=== PATIENT | female | born 1980 | race Caucasian/White ===

== ENCOUNTER 2017-06-05 13:48 | Emergency (ER) | payer BC, OTHER ==
--- NOTE | 2017-06-05 14:00 | EDM.PDOC ---
ED HPI GENERAL MEDICAL PROBLEM - General Chief Complaint: Respiratory Problem Stated Complaint: SOB Time Seen by Provider: 06/05/17 13:59 Source of Information: Reports: Patient History Limitations: Reports: No Limitations - History of Present Illness INITIAL COMMENTS - FREE TEXT/NARRATIVE: HISTORY AND PHYSICAL: History of present illness: [36-year-old female complaining of dry cough for more than a week. Nonproductive with no fevers chills sweats or shaking chills. Cough does not go away] Review of systems: As per history of present illness and below otherwise all systems reviewed and negative. Past medical history: As per history of present illness and as reviewed below otherwise noncontributory. Surgical history: As per history of present illness and as reviewed below otherwise noncontributory. Social history: No reported history of drug or alcohol abuse. Family history: As per history of present illness and as reviewed below otherwise noncontributory. Physical exam: Well-appearing patient no acute distress normal respiratory rate and pulse ox. Supple neck clear lungs regular rate and rhythm nontender abdomen normal extremities HEENT: Atraumatic, normocephalic, pupils reactive, negative for conjunctival pallor or scleral icterus, mucous membranes moist, throat clear, neck supple, nontender, trachea midline. Lungs: Clear to auscultation, breath sounds equal bilaterally, chest nontender. Heart: S1S2, regular, negative for clicks, rubs, or JVD. Abdomen: Soft, nondistended, nontender. Negative for masses or hepatosplenomegaly. Negative for costovertebral tenderness. Pelvis: Stable nontender. Genitourinary: Deferred. Rectal: Deferred. Extremities: Atraumatic, negative for cords or calf pain. Neurovascular unremarkable. Neuro: Awake, alert, oriented. Cranial nerves grossly unremarkable. Cerebellum unremarkable. Motor and sensory unremarkable throughout. Exam nonfocal. Diagnostics: [] Therapeutics: [] Impression: [] Plan: [Signs and symptoms consistent with walking pneumonia. Discussed with patient will treat with Zithromax as well as cough medications. She is aware to use vaporizer follow-up with her primary care doctor. No further workup or treatment indicated. Patient agrees with outpatient follow-up and strict return precautions given.] Definitive disposition and diagnosis as appropriate pending reevaluation and review of above. chest with breathing Pain Score (Numeric/FACES): 2 - Related Data Allergies Allergy/AdvReac Type Severity Reaction Status Date / Time Sulfa (Sulfonamide Allergy Hives Verified 06/05/17 14:00 Antibiotics) Home Meds: Home Meds Azithromycin [Zithromax] 250 mg PO DAILY #6 tablet 06/05/17 [Rx] Benzonatate [Tessalon Perles] 200 mg PO TID PRN #21 cap 06/05/17 [Rx] ED ROS GENERAL - Review of Systems Review Of Systems: See Below (History of present illness) ED EXAM, GENERAL - Physical Exam Exam: See Below (History of present illness) Course - Vital Signs Last Recorded V/S: Last Vital Signs Temp 36.2 C 06/05/17 13:58 Pulse 96 06/05/17 13:58 Resp 16 06/05/17 13:58 BP 115/57 L 06/05/17 13:58 Pulse Ox 100 06/05/17 13:58 Departure - Departure Time of Disposition: 14:08 Disposition: Home, Self-Care 01 Condition: Good Clinical Impression: Walking pneumonia - Discharge Information Prescriptions: Azithromycin [Zithromax] 250 mg PO DAILY #6 tablet Benzonatate [Tessalon Perles] 200 mg PO TID PRN #21 cap PRN Reason: Cough Instructions: Upper Respiratory Infection, Adult, [id number] Referrals: PCP,None [Primary Care Provider] - Forms: ED Department Discharge Additional Instructions: Your history and symptoms suggest that you have walking pneumonia. This is a lung infection which will not go away without antibiotic treatment however it does not make the patient profoundly ill. Is typically characterized by persistent dry cough which can last weeks to over a month. Finish Zithromax as prescribed and take Mucinex DM [id number] cough medicine as needed for cough and to break up mucus. Use Tessalon as prescribed as needed for cough. Rest and drink plenty of fluids and follow-up with your DrMaikel in 2 days. Return immediately for new severe or worsening symptoms
[2017-06-05 14:17] VITALS: BP 115/57
== END 2017-06-05 14:21 | disposition home or self-care (01) ==
LOC: MW.ED 13:48
DX: J18.9 Pneumonia, unspecified organism (principal); Z79.2 Long term (current) use of antibiotics; Z88.2 Allergy status to sulfonamides
CPT/HCPCS: 99282